=== PATIENT | female | born 1995 | race African-American/Black ===

== ENCOUNTER 2016-07-23 18:29 | Emergency (ER) | payer OTHER ==
[2016-07-23 18:42] VITALS: BP 145/69
[2016-07-23] MEDS ORDERED: Ibuprofen TAB* 600 MG PO ONE (18:52)
--- NOTE | 2016-07-23 19:03 | UC ---
Knee Pain HPI - HPI Summary HPI Summary: Fell directly onto L knee on ice this afternoon. Denies twisting injury or feeling of instability. No prev knee inj or sx. - History of Current Complaint Chief Complaint: UCLowerExtremity Stated Complaint: KNEE INJURY Time Seen by Provider: 07/23/16 18:48 Hx Obtained From: Patient Hx Last Menstrual Period: ended 2 days ago ?: No Onset/Duration: Sudden Onset Severity Initially: Moderate Severity Currently: Mild Character: Dull, Aching Aggravating Factor(s): Weight Bearing Alleviating Factor(s): Rest Able to Bear Weight: Yes - Allergies/Home Medications Allergies/Adverse Reactions: Allergies Allergy/AdvReac Type Severity Reaction Status Date / Time Peanut Oil Allergy Unknown Verified 07/23/16 18:42 Reaction Details Home Medications: Home Medications Omeprazole CAP* [Prilosec CAP* 20 MG] 07/23/16 [History Confirmed 07/23/16] PMH/Surg Hx/FS Hx/Imm Hx - Surgical History Surgical History: None - Family History Known Family History: Positive: None, Cardiac Disease - Father, Hypertension - Mother, Diabetes - Mother Family History: FHx of HLD (Father) - Social History Occupation: Student Lives: Alone Alcohol Use: Occasionally Substance Use Type: None Smoking Status (MU): Never Smoked Tobacco Review of Systems Constitutional: Negative Skin: Negative Eyes: Negative ENT: Negative Respiratory: Negative Cardiovascular: Negative Gastrointestinal: Negative Genitourinary: Negative Motor: Negative Neurovascular: Negative Musculoskeletal: Arthralgia Neurological: Negative Psychological: Negative All Other Systems Reviewed And Are Negative: Yes Physical Exam Triage Information Reviewed: Yes Appearance: Well-Appearing, No Pain Distress, Obese Vital Signs: Initial Vital Signs Temp 96.9 F 07/23/16 18:39 Pulse 114 07/23/16 18:39 Resp 18 07/23/16 18:39 BP 145/69 07/23/16 18:39 Vital Signs Reviewed: Yes Eye Exam: Normal Eyes: Positive: Conjunctiva Clear ENT Exam: Normal ENT: Positive: Normal ENT inspection, Hearing grossly normal, Pharynx normal, TMs normal Dental Exam: Normal Neck exam: Normal Neck: Positive: Supple, Nontender, No Lymphadenopathy Respiratory Exam: Normal Respiratory: Positive: Chest non-tender, Lungs clear, Normal breath sounds, No respiratory distress, No accessory muscle use Cardiovascular Exam: Normal Cardiovascular: Positive: RRR, No Murmur Musculoskeletal Exam: Other - tender over L patella Musculoskeletal: Positive: ROM Intact Neurological Exam: Normal Psychological Exam: Normal Skin Exam: Normal Knee Pain Course/Dx - Differential Dx/Diagnosis Provider Diagnoses: L knee contusion Discharge - Discharge Plan Condition: Stable Disposition: HOME Patient Education Materials: Contusion in Adults (ED) Forms: *Work Release Additional Instructions: Use ice, ibuprofen, and elevation for pain. If you are not having clear improvement within 4 days, please follow up with [facility].
--- NOTE | 2016-07-23 19:37 | RAD ---
INDICATION: Left knee injury. TECHNIQUE: 4 views of the left knee were obtained. FINDINGS: The bones are in normal alignment. No joint effusion or fracture is seen. Joint spaces appear maintained. IMPRESSION: NO EVIDENCE FOR FRACTURE.
== END 2016-07-23 19:54 | disposition home or self-care (01) ==
LOC: UCEAST 18:29
DX: S80.02XA Contusion of left knee, initial encounter (principal); W00.0XXA Fall on same level due to ice and snow, initial encounter; Y93.9 Activity, unspecified; Y92.9 Unspecified place or not applicable; E66.9 Obesity, unspecified; R03.0 Elevated blood-pressure reading, without diagnosis of hypertension
CPT/HCPCS: 99211; A9270-GY; G0463

== ENCOUNTER 2017-05-04 09:27 | Emergency (ER) | payer OTHER ==
[2017-05-04 09:55] VITALS: BP 152/83
--- NOTE | 2017-05-04 10:52 | UC ---
Nausea/Vomiting/Diarrhea HPI - HPI Summary HPI Summary: 22 y/o female presents to the urgent care c/o nausea and vomiting for the past 3 days. . Pt reports She has had 2 episodes of nonbilious vomiting for 2 days and 1 episode this morning. She has decrease appetite and she has been drinking fluids. She had 1 episode of diarrhea the first day. She doen'st recall eating outside. She has not been out of the country in the past 3months. She feels weak. LMP:04/21/2017 with regular menstrual cycles. Pt denies fever. abdominal pain, hematoemesis, lower back pain, dizziness, SOB, BROWN. She has not taking anything to alleviate symptoms. - History of Current Complaint Chief Complaint: UCGeneralIllness Stated Complaint: VOMITTING, DIZZY Time Seen by Provider: 05/04/17 10:50 Hx Obtained From: Patient Hx Last Menstrual Period: 04/21/2017 ?: No Onset/Duration: Gradual Onset, Lasting Days - 3 days, Still Present Timing: Intermittent Episodes Lasting: Severity Initially: Mild Severity Currently: Mild Pain Intensity: 0 Pain Scale Used: 0-10 Numeric Location: Epigastric Character: Not Applicable Aggravating Factor(s): Food Alleviating Factor(s): Vomiting Vomiting Frequency: Daily - 2 episodes/day Nausea/Vomiting Duration: 24-36 hours Vomiting Characteristics: Nonbilious Diarrhea Presence: No - Risk Factors Influenza Risk Factors: Negative Surgical Obstruction Risk Factor(s): Negative - Allergies/Home Medications Allergies/Adverse Reactions: Allergies Allergy/AdvReac Type Severity Reaction Status Date / Time Apple Allergy Intermediate mouth Verified 05/04/17 09:49 swelling Peanut Oil Allergy Unknown Verified 05/04/17 09:49 Reaction Details PMH/Surg Hx/FS Hx/Imm Hx Previously Healthy: Yes - Pt denies PMHX - Surgical History Surgical History: None - Family History Known Family History: Positive: None, Cardiac Disease - Father, Hypertension - Mother, Diabetes - Mother Family History: Dyslipidemia(Father) - Social History Occupation: Student Lives: With Family Alcohol Use: Occasionally Substance Use Type: None Smoking Status (MU): Never Smoked Tobacco - Immunization History Vaccination Up to Date: Yes Review of Systems Constitutional: Negative Skin: Negative Eyes: Negative ENT: Negative Respiratory: Negative Cardiovascular: Negative Gastrointestinal: Vomiting, Diarrhea - 1 episdoe the first day which resolved, Nausea Genitourinary: Negative Motor: Negative Neurovascular: Negative Musculoskeletal: Negative Neurological: Negative Psychological: Negative Is Patient Immunocompromised?: No All Other Systems Reviewed And Are Negative: Yes Physical Exam Triage Information Reviewed: Yes Vital Signs: Initial Vital Signs Temp 98.3 F 05/04/17 09:49 Pulse 87 05/04/17 09:49 Resp 16 05/04/17 09:49 BP 152/83 05/04/17 09:49 Pulse Ox 100 05/04/17 09:49 - Additional Comments Vital Signs Reviewed: Yes General:Patient is a well developed and nourished young female who is sitting comfortable in the examining table. Patient is not in any acute respiratory distress. Eyes: Positive: Conjunctiva Clear - PERRLA, EOMI, fundi grossly normal ENT: Positive: Normal ENT inspection, Hearing grossly normal, Pharynx normal, TMs normal Neck: Positive: Supple, Nontender, No Lymphadenopathy Respiratory: Positive: Chest non-tender, Lungs clear, Normal breath sounds, No respiratory distress Cardiovascular: Positive: RRR,S1 and S2 present, No Murmur, Pulses Normal, Brisk Capillary Refill Abdomen Description: Positive: Nontender, Other: - Abd: Flat with no distention. No surface trauma, scars, incisions. hyperactive bowel sounds present in all four quadrants. No tenderness, guarding, rigidity to palpation. No masses palpated, no pulsation in epigastric area. No organomegaly. Negative [place] signs. No periumbilical tenderness. No rebound in the lower quadrants. NT over McBurneys point. Good femoral pulses bilaterally. No hernia noted. No CVAT bilaterally Musculoskeletal: Positive: Strength Intact, ROM Intact, No Edema,FROM in all major joints, no edema, no cyanosis or clubbing. Neuro: Alert and oriented x 3. No acute neurological deficits. Speech is normal. Psycological: WNL Skin: Dry and warm Naus/Vom/Diarrhea Course/Dx - Course Course Of Treatment: 22 y/o female presents to the urgent care c/o nausea and vomiting for the past 3 days. . Pt reports She has had 2 episodes of nonbilious vomiting for 2 days and 1 episode this morning. She has decrease appetite and she has been drinking fluids. She had 1 episode of diarrhea the first day. She does'nt recall eating outside. She has not been out of the country in the past 3 months. She feels weak. LMP:04/21/2017 with regular menstrual cycles. Pt denies fever. abdominal pain, hematoemesis, lower back pain, dizziness, SOB, BROWN. She has not taking anything to alleviate symptoms. HX obtained.PE: WNL, UA and test: negative. Pt most likely with a gastroenteritis. Pt Rx Zofran PO for Nausea and vomiting, advised to increase fluid intake, eat soft meals, rest. However if symptoms worsen and abdominal pain develops to go Immediately to the ER for further management.Pt's BP is elevated today advised to decrease salt in diet, monitor BP and f/u with PCP for further management. Pt explained D/C instructions. Pt understood and agreed w/ plan of care. Pt left the clinic ambulating, A&OX3 - Differential Dx/Diagnosis Differential Diagnoses - Female: Appendicitis, , Enterocolitis, Gastroenteritis (Viral), Gastroenteritis (Bacterial), Vomiting, Diarrhea, Colitis Provider Diagnoses: 1- Acute nausea and vomiting. 2- Elevated BP w/o Hx of HTN Is Visit Related: No Condition At Discharge: Stable Discharge - Discharge Plan Condition: Stable Disposition: HOME Prescriptions: Ondansetron ODT TAB* [Zofran 4 MG Odt TAB*] 4 mg PO Q6H PRN #12 tab.odt PRN Reason: Vomiting Patient Education Materials: Acute Nausea and Vomiting (ED), Low Sodium Diet ( ED) Forms: *School Release, *Work Release Referrals: [facility] [place] [facility] [Outside] - 3 Days Additional Instructions: 1- Please increase fluid intake with Gatorade or Pedialyte OTC. eat soft meals and rest. 2- Take the Zofran PO as directed to alleviate nausea and vomiting 3- If you develops fever or abdominal pain w/ recurrent episodes of diarrhea please go the ER, otherwise f/u with your PCP if diarrhea not resolving in 2-3 days 4- Your BP is elevated today please decrease salt in your diet, monitor BP at home, if it continues to be elevated please f/u with your PCP for further management.
== END 2017-05-04 11:40 | disposition home or self-care (01) ==
LOC: UCEAST 09:27
DX: R11.2 Nausea with vomiting, unspecified (principal); R03.0 Elevated blood-pressure reading, without diagnosis of hypertension; R42 Dizziness and giddiness; Z32.02 Encounter for pregnancy test, result negative
CPT/HCPCS: 81003; 84702; 99212; G0463